=== PATIENT | female | born 1995 | race Caucasian/White ===

== ENCOUNTER 2023-09-05 11:27 | Emergency (ER) | payer BC, SELFPAY ==
[2023-09-05 11:57] VITALS: BP 137/86
[2023-09-05 12:23] LABS: % Basophils 0.5 % (0-2); % Eosinophils 1.7 % (0-6); % Immature Granulocytes 0.3 % (0-0.5); % Lymphocytes 19.7 % (20.5-51.1); % Monocytes 6.1 % (1.7-9.3); % Neutrophils 71.7 % (42.2-75.2); Absolute Basophils 0.1 10^3/uL (0-0.2); Absolute Eosinophils 0.2 10^3/uL (0-0.7); Absolute Lymphocytes 2.1 10^3/uL (1.2-3.4); Absolute Monocytes 0.6 10^3/uL (0.1-0.6); Absolute Neutrophils 7.6 10^3/uL (1.4-6.5); Hematocrit 37.1 % (37.0-47.0); Hemoglobin 13.1 g/dL (12.0-16.0); Mean Corp Hgb Conc. 35.3 g/dL (33.0-37.0); Mean Corpuscular Hgb 31.7 pg (27.0-31.0); Mean Corpuscular Volume 89.8 fL (81.0-99.0); Mean Platelet Volume 9.4 fL (7.4-10.4); Nucleated Red Blood Cells % 0 %; Platelet Count 241 10^3/uL (130-400); Red Blood Cell Count 4.13 10^6/uL (4.20-5.40); Red Cell Dist. Width 12.2 % (11.5-14.5); White Blood Cell Count 10.6 10^3/uL (4.8-10.8)
[2023-09-05 12:29] LABS: Urine Albumin Negative (Neg - Trace); Urine Bilirubin Negative (Negative); Urine Character Clear (Clear); Urine Color Yellow; Urine Glucose Negative (Negative); Urine Ketone Negative (Negative); Urine Leukocyte Trace (Negative); Urine Nitrite Negative (Negative); Urine Occult Blood Negative (Negative); Urine Urobilinogen Negative (Neg - 1+)
[2023-09-05 12:49] LABS: ALT (SGPT) 18 U/L (0-35); AST (SGOT) 22 U/L (14-36); Albumin 4.3 g/dl (3.5-5.0); Alkaline Phosphatase 48 U/L (38-126); Blood Urea Nitrogen 11 mg/dl (7-17); Calcium 9.4 mg/dl (8.4-10.2); Carbon Dioxide 25 mmol/L (22-30); Chloride 106 mmol/L (98-107); Glucose 89 mg/dl (70-99); Potassium 4.2 mmol/L (3.5-5.1); Sodium 135 mmol/L (135-145); Total Bilirubin 0.5 mg/dl (0.2-1.3); eGFR > 60.00
[2023-09-05 12:57] LABS: HCG, Serum Qualitative Screen Negative
[2023-09-05 13:25] LABS: Urine Bacteria Few (Negative); Urine Red Blood Cell 0-2 /HPF (0-2)
--- NOTE | 2023-09-05 13:39 | ED.GENMED ---
History of Present Illness
<VEE Huff - Last Filed: 09/05/23 16:27>
General
Chief Complaint: Fainting/Passed Out
Source: patient
Exam Limitations: none
Time Seen by Provider: 09/05/23 13:13
Nursing documentation reviewed up to this point in time: agreed with
Travel History
Have you had any contact with someone who has COVID-19?: No
Do you have any symptoms of coronavirus? Fever > 100 degrees, chills, cough, shortness of breath, sore throat, loss of taste or smell, muscle aches, or headache?: No
History of Present Illness
History of Present Illness:
27 yr old female sent from urgent care presents to the ED for evaluation. Patient reports she has passed out twice in the past 2 weeks. She reports each time occurred while sitting. Patient was in the nail salon 9 days ago was sitting and became
very lightheaded and dizzy and apparently passed out in the chair. She then reports 3 days ago, on she was driving when her ear started to rain she felt lightheaded and believes she passed out. She woke up and felt very nauseous. She
thought she also had urinated herself.
Patient has a history of anxiety and since the summer has not had a good appetite. She will go days at times without eating. She reports 9 days ago she only had a banana that morning but when she passed out in the evening while driving 3 days
ago she did have dinner.
SHe is on LExapro for anxiety, vapes nicotine and uses medical marijuana for anxiety. She reports this also helps her with an appetite. She is on oral contraceptives. She denies any shortness of breath/chest pain.
Pt is asymptomatic now.
Past History
<VEE Huff - Last Filed: 09/05/23 16:27>
Past History
ED Past Medical History: None
Social History
Personal: Single
Review of Systems
<VEE Huff - Last Filed: 09/05/23 16:27>
Review of Systems
Allergies reviewed?: Yes
All Other Systems: ROS reviewed and negative except as documented in HPI and ROS
Constitutional: Reports no symptoms
Respiratory: Reports no symptoms
Cardiac: Reports syncope
ABD/GI: Reports no symptoms
: Reports no symptoms
Skin: Reports no symptoms
Neurological: Reports no symptoms
Psychiatric: Reports anxiety
Phy Exam
<VEE Huff - Last Filed: 09/05/23 16:27>
General Physical Exam
General Presentation: no apparent distress
General age: appears stated age
General Skin: warm and dry
General Habitus: normal
General Mental: alert
General Hydration: appears well hydrated
Cardiovascular Exam
Cardiovascular Exam: regular rate/rhythm, no murmur and normal peripheral pulses
Pulmonary Exam
Pulmonary Exam: lungs clear and no respiratory distress
Neurological Exam
Neurological Exam: alert and oriented x3
Musculoskeletal Exam
Musculoskeletal Exam: full ROM
Skin Exam
Skin Exam: normal color and warm/dry
Psychiatric Exam
Psychiatric Exam: normal mood/affect
Course
<VEE Huff - Last Filed: 09/05/23 16:27>
Orders/Labs/Results
Orders:
Orders
09/05/23 12:01
Electrocardiogram (*1) Urgent
Reason for Study: Chest Pain
09/05/23 12:02
EKG- Treatment ONCE
Test Result ONCE
09/05/23 12:05
Electrocardiogram (*1) Urgent
Reason for Study: Syncope
EKG- Treatment ONCE
09/05/23 12:11
Complete Blood Count/With Diff Urgent
Comprehensive Metabolic Panel Urgent
HCG, Serum Qualitative Screen Urgent
TSH Reflex To Free T4 Urgent
Urinalysis Reflex To Culture Urgent
Date Specimen was Collected: 09/05/23
Time Specimen was Collected: 12:01
Urine Microscopic Reflex Cult Urgent
09/05/23 15:31
D-Dimer Routine
Abnormal Lab Results
09/05/23
12:11
RBC 4.13 L 10^6/uL
(4.20-5.40)
MCH 31.7 H pg
(27.0-31.0)
Absolute Neuts (auto) 7.6 H 10^3/uL
(1.4-6.5)
Lymphocytes % 19.7 L %
(20.5-51.1)
Leukocyte Esterase Rfl Trace A
(Negative)
Urine Bacteria (Reflex) Few A
(Negative)
09/05/23 12:11
09/05/23 12:11
Vital Signs
Initial and Last Documented VS:
Initial Vital Signs
Pulse Resp BP Pulse Ox
65 20 137/86 100
09/05/23 11:57 09/05/23 11:57 09/05/23 11:57 09/05/23 11:57
Last Documented Vital Signs
Pulse Resp BP Pulse Ox
65 20 137/86 100
09/05/23 11:57 09/05/23 11:57 09/05/23 11:57 09/05/23 11:57
Social Professionals consulted with Physician
Social Professionals consulted with physician?: Yes
Name of Physician Consulted: Betty
<Jean Rodriguez, DO - Last Filed: 09/05/23 14:42>
Orders/Labs/Results
Orders:
Orders
09/05/23 12:01
Electrocardiogram (*1) Urgent
Reason for Study: Chest Pain
09/05/23 12:02
EKG- Treatment ONCE
Test Result ONCE
09/05/23 12:05
Electrocardiogram (*1) Urgent
Reason for Study: Syncope
EKG- Treatment ONCE
09/05/23 12:11
Complete Blood Count/With Diff Urgent
Comprehensive Metabolic Panel Urgent
HCG, Serum Qualitative Screen Urgent
TSH Reflex To Free T4 Urgent
Urinalysis Reflex To Culture Urgent
Date Specimen was Collected: 09/05/23
Time Specimen was Collected: 12:01
Urine Microscopic Reflex Cult Urgent
09/05/23 15:31
D-Dimer Routine
Abnormal Lab Results
09/05/23
12:11
RBC 4.13 L 10^6/uL
(4.20-5.40)
MCH 31.7 H pg
(27.0-31.0)
Absolute Neuts (auto) 7.6 H 10^3/uL
(1.4-6.5)
Lymphocytes % 19.7 L %
(20.5-51.1)
Leukocyte Esterase Rfl Trace A
(Negative)
Urine Bacteria (Reflex) Few A
(Negative)
09/05/23 12:11
09/05/23 12:11
Vital Signs
Initial and Last Documented VS:
Initial Vital Signs
Pulse Resp BP Pulse Ox
65 20 137/86 100
09/05/23 11:57 09/05/23 11:57 09/05/23 11:57 09/05/23 11:57
Last Documented Vital Signs
Pulse Resp BP Pulse Ox
65 20 137/86 100
09/05/23 11:57 09/05/23 11:57 09/05/23 11:57 09/05/23 11:57
<VEE Huff - Last Filed: 09/05/23 16:27>
MDM/Problems Addressed
Differential Diagnosis Includes:
not limited to: syncope, less likely seizure
MDM/Problems Addressed:
27-year-old female presents to the ER for 2 episodes of syncope while sitting. She did report to ED physician that during 1 episode she had a little pelvic pain prior to episode. She has a history of syncope with blood draws in the past. She has
a history of anxiety and has not been eating well has had appetite issues. She presents awake alert no acute distress asymptomatic. She denies any complaints of chest pain or shortness of breath prior to episodes. She describes typically feeling
very lightheaded like she is going to pass out before event occurs. She is in no acute distress here with a negative D-dimer unremarkable electrolytes, stable HGB and normal EKG.
discussed Close outpt f/ u w/ pcp.
Chronic conditions affecting care:
anxiety/appetite issues for past several months.
<VEE Huff - Last Filed: 09/05/23 16:27>
*Pulse Oximetry
Patient hypoxic: no
*EKG
Interpreted by ED Provider?: Yes
Interpretation: normal
Heart Rate: 60
Rate: normal
Rhythm: sinus
Ischemia: no ischemia
*Critical Care Note
Total Time (30-74mins, 75-104mins- exclusive of procedures): Not Applicable
ED Attending Note
<VEE Huff - Last Filed: 09/05/23 16:27>
-
Portions of this chart may have been created with voice recognition software.� Occasional wrong word or��sound alike� substitutions may have occurred due to the inherent limitations of voice recognition software.
<Jean Rodriguez DO - Last Filed: 09/05/23 14:42>
ED Attending Note
Patient seen and examined by attending physician: Yes
I performed the substantive portion of visit, reviewed & personally made and approve the management plan that is documented in note by myself or CINDI.: Yes
ED Attending Note:
27-year-old female who presents after she had recent syncopal episodes. Patient notes that her past she has passed out when she gets IVs. Patient states that on the first event when in the car she did have a little bit of pelvic pain prior to the
event. The second event occurred while getting her nails done. Patient denies chest pain or shortness of breath. No hemoptysis. No leg swelling. Exam: Awake and alert, heart regular, lungs clear. No evidence of DVT by exam. Assessment and
plan: Check D-dimer, labs. EKG normal sinus rhythm. No ischemia. Normal intervals.
Discharge Plan
Departure
Patient Disposition: Home (Routine Discharge)
Date of Disposition: 09/05/23
Time of Disposition: 16:25
Patient with high blood pressure during this ER visit?: Yes
Condition: Fair
Covid-19: Not Applicable
Discharge Problem:
Syncope
Instructions: Syncope (Fainting) (DC)
Referrals:
Marcia Justice PA-C [Family Provider] -
Activity Restrictions/Additional Instructions:
It is important that you follow-up with your family doctor for continued evaluation of your symptoms. Return if any worsening of symptoms.
Interventions
Interventions:
ED- Cardiac Assessment Last Done: 09/05/23 15:04
ED- Neurological Assessment Last Done: 09/05/23 15:04
[2023-09-05 15:55] LABS: D-Dimer < 0.27 ug/mlFEU (0.00-0.50)
[2023-09-05 16:25] VITALS: BP 112/66
== END 2023-09-05 16:32 | disposition home or self-care (01) ==
LOC: EMR 11:27
PROVIDERS: Emergency Medicine; EMERGENCY PHYSICIAN Emergency Medicine; FAMILY PHYSICIAN Physician Assistant
DX: R55 Syncope and collapse (principal); R10.2 Pelvic and perineal pain; R03.0 Elevated blood-pressure reading, without diagnosis of hypertension; F41.9 Anxiety disorder, unspecified; F32.A Depression, unspecified; F17.290 Nicotine dependence, other tobacco product, uncomplicated
CPT/HCPCS: 99283; 80053; 81003; 81015; 84443; 84703; 85025; 85379; 93005